=== PATIENT | male | born 1970 | race Caucasian/White ===

== ENCOUNTER 2017-02-11 08:34 | Emergency (ER) | payer MEDICARE | END 2017-02-11 10:30 | disposition home or self-care (01) | LOC: ER 08:34 | DX: T23.262A Burn of second degree of back of left hand, initial encounter (principal); T31.0 Burns involving less than 10% of body surface; X10.2XXA Contact with fats and cooking oils, initial encounter; Y93.G3 Activity, cooking and baking; Y92.009 Unspecified place in unspecified non-institutional (private) residence as the place of occurrence of the external cause; F17.220 Nicotine dependence, chewing tobacco, uncomplicated; I10 Essential (primary) hypertension; Z79.899 Other long term (current) drug therapy | CPT/HCPCS: 96372; 99070; 99282-25 ==

== ENCOUNTER 2017-05-26 19:53 | Emergency (ER) | payer MEDICARE | END 2017-05-26 21:50 | disposition home or self-care (01) | LOC: ER 19:53 | DX: M54.40 Lumbago with sciatica, unspecified side (principal); W19.XXXD Unspecified fall, subsequent encounter; Z79.899 Other long term (current) drug therapy | CPT/HCPCS: 96372; 99282-25 ==